=== PATIENT | male | born 1965 | race Caucasian/White ===

== ENCOUNTER 2017-02-25 18:57 | Inpatient (IN) | payer SELFPAY ==
[~2017-02-25] VITALS: Ht 165.1 cm; Wt 99.8 kg
[~2017-02-25 18:57] MED LIST: PRILOSEC10 MG PO
[2017-02-25 19:35] VITALS: BP 142/76
--- NOTE | 2017-02-25 20:53 | NUR ---
PT TAKEN TO BED 6
--- NOTE | 2017-02-25 21:02 | NUR ---
PT PRESENT TO ER C/O LOWER ABD PAIN, BODYACHES, SINCE LAST WEEK. LACERATION TO RT THUMB AT 1200 NOON TODAY.
--- NOTE | 2017-02-25 21:07 | NUR ---
Dr. Meneses evaluating patient at bedside.
[2017-02-25] MEDS ORDERED: NACL 0.9% 1,000 ML IV SCH (21:17)
[2017-02-25] MEDS ORDERED: KETOROLAC 30 MG/ML VIAL IVP ONE (21:20)
[2017-02-25] MEDS ORDERED: LIDOCAINE 1% 500 MG/50 ML VIAL INJ ONE (21:20)
[2017-02-25] MEDS ORDERED: NEOMYCIN/POLYMYXIN/BACITRACIN OPTH OINT 3.5 GM TUBE OP SCH (22:40)
[2017-02-25] MEDS ORDERED: NEOMYCIN/POLYMYXIN/BACITRACIN 0.9 GM/1 PKT TP ONE (22:48)
[2017-02-25] MEDS ORDERED: MORPHINE SULFATE 4 MG/ML SYR IVP ONE (23:10)
[2017-02-25] MEDS ORDERED: metroNIDAZOLE 500 MG/NS PREMIX 100 ML IV ONE (23:10)
[2017-02-25] MEDS ORDERED: LEVOFLOXACIN 500 MG/D5W PREMIX 100 ML IV ONE (23:10)
[2017-02-25] MEDS ORDERED: ONDANSETRON 4 MG/2 ML VIAL IVP ONE (23:10)
--- NOTE | 2017-02-26 00:15 | NUR ---
Patient will be admitted to care of RADHA ZHOU. Admited to TELEMETRY. Will go to room 106B. Belongings list completed. Report to KORY LITTLEJOHN.
--- NOTE | 2017-02-26 00:30 | NUR ---
PATIENT ADMITTED TO UNIT FROM ED, PATIENT BROUGHT TO BEDSIDE, VIA GURNEY, PATIENT TRANSFERRED TO THE BED, PATIENT IS AAOX4 ON ROOM AIR, NO SOB OR SIGN OF DISTRESS NOTED, PATIENT APPEARS TO BE IN PAIN IN ABDOMINAL AREA AND NAUSEOUS. EXPLAINED TO PATIENT AWAITING DRS ORDERS FOR MEDICATION, WILL FOLLOW UP, SKIN CHECK WITH RIGHT THUMB LACERATION NOTED WITH TWO STITCHES INTACT, NO DRAINAGE NOTED. ORIENTED PATIENT TO ROOM AND CALL LIGHT PATIENT CONNECTED TO TELE MONITOR. IV TO RIGHT AC PATENT AND INTACT. SAFETY MEASURES CHECKED, CALL LIGHT WITHIN REACH. WILL CONTINUE TO MONITOR. VITAL SIGNS STABLE.
[2017-02-26 00:45] VITALS: BP 118/72
[2017-02-26] MEDS ORDERED: DOCUSATE SODIUM 100 MG GELCAP PO PRN (00:45)
[2017-02-26] MEDS ORDERED: ONDANSETRON 4 MG/2 ML VIAL IVP PRN (00:45)
[2017-02-26] MEDS ORDERED: MORPHINE SULFATE 2 MG/ML SYR IVP PRN (00:45)
[2017-02-26] MEDS: NACL 0.9% 1,000 ML IV SCH ×4 (00:50→20:26)
--- NOTE | 2017-02-26 02:31 | NUR ---
PATIENT SLEEPING, NO SIGN OF DISTRESS, CALL LIGHT WITHIN REACH. WILL CONTINUE TO MONITOR
[2017-02-26 04:00] VITALS: BP 109/65
--- NOTE | 2017-02-26 04:15 | NUR ---
VITAL SIGNS STABLE, NO SOB OR SIGN OF DISTRESS AT THIS TIME, CALL LIGHT WITHIN REACH. WILL CONTINUE TO MONITOR
[2017-02-26] MEDS ORDERED: metroNIDAZOLE 500 MG/NS PREMIX 100 ML IV SCH (05:00)
--- NOTE | 2017-02-26 07:17 | NUR ---
ENDORSED PATIENT TO DAY RN AT BEDSIDE, PATIENT IN STABLE CONDITION
--- NOTE | 2017-02-26 07:18 | NUR ---
RECEIVED PT IN BED. AWAKE, ALERT, ORIENTEDX4. NO SOB NOTED. DENIES ANY PAIN OR DISCOMFORT AT THIS TIME. POSITIVE BOWEL SOUNDS NOTED ON FOUR QUADRANTS. LACERATION ON RIGHT THUMB NOTED, BAND AID IN PLACE, DRY AND INTACT. PT AMBULATORY. DENIES ANY DISCOMFORT WITH BOWEL OR BLADDER ELIMINATION AT THIS TIME. SAFETY PRECAUTION IN PLACE. CALL LIGHT WITHIN REACH.
[2017-02-26 08:00] VITALS: BP 121/67
[2017-02-26] MEDS ORDERED: KETOROLAC 15 MG/ML VIAL IM SCH (08:30)
[2017-02-26] MEDS: LACTOBACILLUS RHAMNOSUS GG 1 EACH CAP PO SCH (08:58)
--- NOTE | 2017-02-26 09:00 | NUR ---
DR RODRIGUEZ MADE AWARE OF CALCIUM LEVEL RESULT OF 7.7, AND ORDER FOR MRSA SCREEN OBTAINED. SPECIMEN SENT TO LABS.
--- NOTE | 2017-02-26 09:07 | NUR ---
PATIENT HAS BEEN SCREENED AND CATEGORIZED HIGH NUTRITION RISK. PATIENT WILL BE SEEN WITHIN 1-2 DAYS OF ADMISSION. 02/26/17-02/27/[address]
[2017-02-26] MEDS: metroNIDAZOLE 500 MG/NS PREMIX 100 ML IV SCH ×2 (11:21→17:39)
--- NOTE | 2017-02-26 11:55 | NUR ---
02/26/17 RD INITIAL ASSESSMENT COMPLETED PLEASE REFER TO NUTRITION ASSESSMENT UNDER CARE ACTIVITY FOR ESTIMATED NUTRITIONAL NEEDS. 1. WHEN MEDICALLY FEASIBLE, INITIATE PO DIET TO START ON CLEAR LIQUID DIET AND ADVANCE TOLERATED TO SOFT/BLAND DIET 2. RD TO FOLLOW-UP 2-3 DAYS; HIGH RISK YOVANI CARPENTER, SINDHU
[2017-02-26 12:00] VITALS: BP 128/75
--- NOTE | 2017-02-26 14:38 | NUR ---
DAUGHTER HUBER AND SHELDON CAME TO SEE PT. BUT PT IS ASLEEP. DAUGHTER VERBALIZED THEY WILL JUST COME BACK BECAUSE THEY DON'T WANT TO WAKE PT UP.
--- NOTE | 2017-02-26 15:13 | NUR ---
CHECKED PT'S TEMPERATURE AT 101.1. PRN TYLENOL GIVEN FOR FEVER. NO SOB NOTED. PT DENIES PAIN AT THIS TIME.
[2017-02-26] MEDS: ACETAMINOPHEN 325 MG TAB PO PRN ×2 (15:15→22:02)
[2017-02-26 16:00] VITALS: BP 118/63
--- NOTE | 2017-02-26 19:20 | NUR ---
ENDORSED PT TO NEXT SHIFT ON STABLE CONDITION. NO SOB NOTED. DENIES ANY PAIN OR DISCOMFORT AT THIS TIME.
--- NOTE | 2017-02-26 19:30 | NUR ---
RECEIVED REPORT FROM DAY RN AT BEDSIDE, PATIENT IS AAO X4 RESTING IN BED, ON ROOM AIR, NO SOB OR SIGN OF DISTRESS, IV TO RAC PATENT AND INTACT, PATIENT DENIES PAIN AT THIS TIME, SKIN INTACT, SAFETY MEASURES CHECKED, DISCUSSED PLAN OF CARE WITH PATIENT, PATIENT VERBALIZED UNDERSTANDING, CALL LIGHT WITHIN REACH. WILL CONTINUE TO MONITOR.
[2017-02-26 20:00] VITALS: BP 136/72
[2017-02-26] MEDS: LEVOFLOXACIN 750 MG/D5W PREMIX 150 ML IV SCH (20:26)
--- NOTE | 2017-02-26 20:29 | NUR ---
IV ABX ADMINISTERED, PATIENT RESTING IN BED, WILL CONTINUE TO MONITOR.
[2017-02-26] MEDS ORDERED: LEVOFLOXACIN 500 MG/D5W PREMIX 100 ML IV SCH (21:00)
--- NOTE | 2017-02-26 22:07 | NUR ---
PATIENTS TEMP ELEVATED TO 101.2, PROVIDED PATIENT ICE PACKS AND ADMINISTERED TYLENOL PER MD ORDER, WILL CONTINUE TO MONITOR
--- NOTE | 2017-02-26 22:30 | NUR ---
PATIENT SLEEPING, NO SIGN OF DISTRESS, CALL LIGHT WITHIN REACH. WILL CONTINUE TO MONITOR
[2017-02-27] VITALS: BP 112/56
--- NOTE | 2017-02-27 | NUR ---
VITAL SIGNS STABLE, NO SOB OR SIGN OF DISTRESS, CALL LIGHT WITHIN REACH. WILL CONTINUE TO MONITOR
[2017-02-27] MEDS: metroNIDAZOLE 500 MG/NS PREMIX 100 ML IV SCH ×5 (00:39→23:04)
[2017-02-27] MEDS: NACL 0.9% 1,000 ML IV SCH ×5 (01:48→23:13)
--- NOTE | 2017-02-27 02:30 | NUR ---
VITAL SIGNS STABLE, NO SOB OR SIGN OF DISTRESS, CALL LIGHT WITHIN REACH. WILL CONTINUE TO MONITOR
[2017-02-27 04:00] VITALS: BP 118/76
--- NOTE | 2017-02-27 04:00 | NUR ---
VITAL SIGNS STABLE, NO SOB OR SIGN OF DISTRESS, CALL LIGHT WITHIN REACH. WILL CONTINUE TO MONITOR
--- NOTE | 2017-02-27 07:15 | NUR ---
RECEIVED PT IN BED, AWAKE. ALERT ORIENTEDX 4. NO SOB NOTED. DENIES ANY PAIN OR DISCOMFORT AT THIS TIME. POSITIVE BOWEL SOUNDS NOTED ON FOUR QUADRANTS. SAFETY PRECAUTION IN PLACE, CALL LIGHT WITHIN REACH.
--- NOTE | 2017-02-27 07:20 | NUR ---
ENDORSED PATIENT TO DAY RN AT BEDSIDE, PATIENT IN STABLE CONDITION
[2017-02-27 08:00] VITALS: BP_SYST 128; BP_SYST 133; BP_DIAS 75; BP_DIAS 88
--- NOTE | 2017-02-27 08:01 | NUR ---
DR WEAVER CAME TO SEE PT.
[2017-02-27] MEDS: LACTOBACILLUS RHAMNOSUS GG 1 EACH CAP PO SCH (08:51)
[2017-02-27] MEDS: DOCUSATE SODIUM 100 MG GELCAP PO SCH ×2 (08:52→20:49)
--- NOTE | 2017-02-27 09:37 | NUR ---
PT TOOK A SHOWER. PT INDEPENDENT. NO SOB NOTED DENIES ANY PAIN OR DISCOMFORT. AMBULATING STEADY. Addendum: 02/27/17 at 0940 by Darlin Rodriguez RN ADDITIONAL: ASSISTED PT GOING TO THE SHOWER ROOM. PROVIDED PT WITH SHOWER NEEDS. PT INDEPENDENT.
--- NOTE | 2017-02-27 10:07 | NUR ---
PT CAME BACK FROM SHOWER ON STABLE CONDITION. NO SOB NOTED DENIES ANY PAIN OR DISCOMFORT. TELEBOX REAPPLIED AND HOOKED BACK TO IVF.
[2017-02-27] MEDS: ACETAMINOPHEN 325 MG TAB PO PRN ×2 (11:59→17:37)
[2017-02-27 12:00] VITALS: BP 133/88
[2017-02-27 16:00] VITALS: BP 123/78
--- NOTE | 2017-02-27 16:00 | NUR ---
ICE PACK PROVIDED PT FOR LOW GRADE FEVER.
--- NOTE | 2017-02-27 17:35 | NUR ---
RECHECKED PT'S TEMPERATURE AT 101.3. MEDICATED PO ORDERED FOR FEVER.
--- NOTE | 2017-02-27 18:19 | NUR ---
RECHECKED PT'S TEMP AT 99.3. COOLING MEASURES AND FEVER MED WORKING TO DECREASE TEMPERATURE.
--- NOTE | 2017-02-27 19:34 | NUR ---
RECEIVED FROM AM RN IN BED AWAKE AND ALERT. NO COMPLAINTS DONE AT THIS TIME. AFEBRILE. CALL LIGHT WITH IN REACH AND CARE PLANS FOR THE NIGHT DISCUSSED WITH PT. A/O X 4. ROM X 4. DX. OF ACUTE DIVERTICULITIS. TELEMETRY CARDIAC MONITORING.
--- NOTE | 2017-02-27 19:36 | NUR ---
PT. KEPT CLEAN, DRY AND COMFORTABLE, NEEDS ATTENDED. ENDORSED TO THE NEXT SHIFT FOR CONTINUITY OF CARE. PT ON STABLE CONDITION. NO SOB, DENIES ANY PAIN OR DISCOMFORT AT THIS TIME.
[2017-02-27 20:00] VITALS: BP 119/85
[2017-02-27] MEDS: LEVOFLOXACIN 750 MG/D5W PREMIX 150 ML IV SCH (20:46)
--- NOTE | 2017-02-27 21:04 | NUR ---
PT. IN BED AT THIS TIME AND MEDICATED WITH ANTI NAUSEA AND PAIN RELIEVER. IV ABT LEVAQUIN INFUSED AND EXPLAINED USE OF IT AND ALLERGIC REACTIONS . CALL LIGHT WITH IN REACH. RE-ORIENTED TO USE OF IT AND RAPID RESPONSE. PT. REFUSED TO HAVE SEQUENTIALS IN PLACE RT WALKING A LOT PER PT. EXPLAINED PROS AND CONS WITH HIM.
[2017-02-28 00:48] VITALS: BP 111/68
[2017-02-28] MEDS: NACL 0.9% 1,000 ML IV SCH ×2 (03:53→11:33)
[2017-02-28 04:10] VITALS: BP 118/76
[2017-02-28] MEDS: metroNIDAZOLE 500 MG/NS PREMIX 100 ML IV SCH ×2 (05:02→11:58)
--- NOTE | 2017-02-28 05:54 | NUR ---
PT. SLEPT WELL THIS SHIFT. AFEBRILE THIS SHIFT. NO SOB. A/O X 4. ROM X 4. CLEAR SPEECH. TELEMETRY MONITORING.
--- NOTE | 2017-02-28 07:28 | NUR ---
PT. BEEN SLEEPING WELL THIS SHIFT.ENDORSED TO THE NEXT RN FOR CONTINUITY OF CARE. NO SOB. NO RESTLESSNESS NOTED. TELEMETRY MONITORING.
--- NOTE | 2017-02-28 07:30 | NUR ---
RECEIVED REPORT FROM ANNETTA SHIRLEY. PT IS A/OX4, AMBULATORY, PT HAS AN IV ON LEFT AC, PATENT, INTACT, FLUSHING WELL, PT HAS A RT THUMB LACERATION DEREK, NO S/S OF RESPIRATORY DISTRESS OR DISCOMFORT NOTED, SAFETY/FALL PRECAUTIONS ARE IN PLACE, DISCUSSED PLAN OF CARE WITH PT, PT VERBALIZED UNDERSTANDING, CALL LIGHT IS WITHIN REACH, WILL CONTINUE TO MONITOR.
[2017-02-28 08:00] VITALS: BP 124/72
[2017-02-28] MEDS: LACTOBACILLUS RHAMNOSUS GG 1 EACH CAP PO SCH (09:21)
[2017-02-28] MEDS: DOCUSATE SODIUM 100 MG GELCAP PO SCH (09:21)
--- NOTE | 2017-02-28 09:21 | NUR ---
DUE MEDICATIONS GIVEN, PT TOLERATED WELL, PT IS SITTING IN BED, EATING BREAKFAST, ALL NEEDS MET, CALL LIGHT WITHIN REACH, WILL CONTINUE TO MONITOR.
[2017-02-28] MEDS ORDERED: FLAGYL250 MG PO (10:40)
[2017-02-28] MEDS ORDERED: LEVAQUIN750 MG PO (10:40)
[2017-02-28] MEDS ORDERED: COLACE100 MG PO (10:46)
[2017-02-28] MEDS ORDERED: NORCO 325 MG-7.1 TAB PO (10:46)
--- NOTE | 2017-02-28 11:30 | NUR ---
PT RESTING IN BED TALKING ON HIS CELL PHONE.
[2017-02-28] MEDS: ACETAMINOPHEN 325 MG TAB PO PRN (11:58)
--- NOTE | 2017-02-28 12:00 | NUR ---
INFORMED PT HE WAS GOING TO BE DISCHARGED, PT VERBALIZED UNDERSTANDING.
--- NOTE | 2017-02-28 13:00 | NUR ---
DISCHARGE INSTRUCTIONS GIVEN, ID WRIST BAND REMOVED, IV REMOVED, CATHETER TIP INTACT, PT STABLE UPON DISCHARGE.
== END 2017-02-28 13:00 | disposition home or self-care (01) | DRG 391 ==
LOC: MED 18:57 → MTU 02-26 00:15
PROVIDERS: ADMIT Family Medicine; ATTEND Family Medicine
PROC: 0HQFXZZ Repair Right Hand Skin, External Approach (ICD-10-PCS; principal; 2017-02-26)
PROC: 3E0234Z Introduction of Serum, Toxoid and Vaccine into Muscle, Percutaneous Approach (ICD-10-PCS; 2017-02-26)
DX: K57.32 Diverticulitis of large intestine without perforation or abscess without bleeding (principal); E43 Unspecified severe protein-calorie malnutrition; S61.011A Laceration without foreign body of right thumb without damage to nail, initial encounter; D72.829 Elevated white blood cell count, unspecified; E66.9 Obesity, unspecified; Z68.34 Body mass index [BMI] 34.0-34.9, adult; Z90.49 Acquired absence of other specified parts of digestive tract; Y93.89 Activity, other specified; Y92.89 Other specified places as the place of occurrence of the external cause; Y99.8 Other external cause status; Z23 Encounter for immunization